=== PATIENT | male | born 1995 | race Caucasian/White ===

== ENCOUNTER 2021-12-22 22:50 | Emergency (ER) | payer OTHER ==
[~2021-12-22] VITALS: Ht 182 cm; Wt 105.0 kg
[2021-12-22 22:50] VITALS: BP 140/74
[~2021-12-22 22:50] MED LIST: ACET1TAB12 PO
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
[2021-12-22] MEDS ORDERED: CEPHALEXIN 250 MG (KEFLEX) CAP PO ONE (23:08)
[2021-12-22] MEDS ORDERED: CEPHALEXIN 250 MG (KEFLEX) CAP PO STA (23:28)
[2021-12-23] MEDS ORDERED: OXYC5TAB PO (00:07)
[2021-12-23] MEDS ORDERED: CEPH500T PO (00:07)
--- NOTE | 2021-12-23 05:46 | Diagnostic Imaging Report ---
INDICATION: Trauma. FINDINGS: There is slightly displaced fracture of the distal phalanx of the right index finger. There is no other fracture or dislocation. There is some soft tissue swelling. IMPRESSION: Slightly displaced fracture involving the distal aspect of the distal phalanx of the right index finger. Dictated by: Dictated on workstation # [id number]
== END 2021-12-23 00:22 | disposition home or self-care (01) ==
LOC: EDUNIT# 22:50 → ER FS 22:53
DX: S62.630A Displaced fracture of distal phalanx of right index finger, initial encounter for closed fracture (principal); Y04.0XXA Assault by unarmed brawl or fight, initial encounter
CPT/HCPCS: 12032; 73140; 99284; A6223

== ENCOUNTER 2022-01-03 08:39 | Emergency (ER) | payer OTHER ==
[~2022-01-03] VITALS: Ht 182 cm; Wt 105.0 kg
[~2022-01-03 08:39] MED LIST changes: +CEPH500T PO; +OXYC5TAB PO
[2022-01-03 08:43] VITALS: BP 138/77
== END 2022-01-03 08:50 | disposition home or self-care (01) ==
LOC: EDUNIT# 08:39 → ER FS 08:41
DX: Z48.02 Encounter for removal of sutures (principal)